=== PATIENT | male | born 1960 | race Hispanic/Latino ===

== ENCOUNTER 2018-01-31 12:28 | Day surgery (SDC) | payer SELFPAY ==
[~2018-01-31] VITALS: Ht 162.6 cm; Wt 88.9 kg
[~2018-01-31 12:28] MED LIST: HUMIRA40 MG/0.8 SC; OMEPRAZOLE10 MG PO
[2018-01-31 15:51] VITALS: BP 115/79
== END 2018-01-31 16:05 | disposition home or self-care (01) | DRG 385 ==
LOC: ENDO 12:28 → ORM 17:15 → ENDO 17:35 → ORM 17:50 → ENDO 18:05
PROVIDERS: ATTEND Internal Medicine Gastroenterology
PROC: 0DBH8ZX Excision of Cecum, Via Natural or Artificial Opening Endoscopic, Diagnostic (ICD-10-PCS; principal; 2018-01-31)
PROC: 0DBL8ZX Excision of Transverse Colon, Via Natural or Artificial Opening Endoscopic, Diagnostic (ICD-10-PCS; 2018-01-31)
PROC: 0DBP8ZX Excision of Rectum, Via Natural or Artificial Opening Endoscopic, Diagnostic (ICD-10-PCS; 2018-01-31)
PROC: 0DBF8ZX Excision of Right Large Intestine, Via Natural or Artificial Opening Endoscopic, Diagnostic (ICD-10-PCS; 2018-01-31)
PROC: 0DBG8ZX Excision of Left Large Intestine, Via Natural or Artificial Opening Endoscopic, Diagnostic (ICD-10-PCS; 2018-01-31)
DX: K51.814 Other ulcerative colitis with abscess (principal); K57.31 Diverticulosis of large intestine without perforation or abscess with bleeding; K63.5 Polyp of colon; K64.4 Residual hemorrhoidal skin tags; K64.8 Other hemorrhoids; K21.9 Gastro-esophageal reflux disease without esophagitis; Z79.899 Other long term (current) drug therapy; Z86.010 Personal history of colon polyps

== ENCOUNTER 2019-10-02 10:40 | Day surgery (SDC) | payer MEDICAID ==
[~2019-10-02] VITALS: Ht 165.1 cm; Wt 86.2 kg
[2019-10-02 13:52] VITALS: BP 112/52
== END 2019-10-02 14:03 | disposition home or self-care (01) ==
LOC: ENDO 10:40 → ORM 13:05 → ENDO 13:20 → ORM 13:20 → ENDO 14:03 → ORM 15:30
PROVIDERS: ATTEND Internal Medicine Gastroenterology
DX: K51.00 Ulcerative (chronic) pancolitis without complications (principal); K57.31 Diverticulosis of large intestine without perforation or abscess with bleeding; K63.5 Polyp of colon; K62.1 Rectal polyp; K64.4 Residual hemorrhoidal skin tags; K21.0 Gastro-esophageal reflux disease with esophagitis; D64.9 Anemia, unspecified; Z79.899 Other long term (current) drug therapy; Z86.010 Personal history of colon polyps